=== PATIENT | female | born 1965 | race Caucasian/White ===

== ENCOUNTER → 2017-10-04 14:43 | Outpatient (CLI) | payer OTHER, MEDICAID, SELFPAY ==
[2017-10-06 13:18] LABS: Fecal Immunochemical Test NOT DETECTED
== END ==
PROVIDERS: PCP Family Medicine; Visit Provider Family Medicine
DX: Z12.11 Encounter for screening for malignant neoplasm of colon (principal)
CPT/HCPCS: 82274

== ENCOUNTER 2017-12-01 10:16 | Day surgery (SDC) | payer OTHER, MEDICAID, SELFPAY ==
[2017-11-14 15:10] VITALS: BMI 27.2
[2017-12-01] VITALS (8 sets, daily range): BP systolic 97–130; BP diastolic 59–87; PULSE 68–99; RESP 9–16; TEMP 36.6–36.9; O2SAT 95–99; BMI 27.2
--- NOTE | 2017-12-01 07:50 | P.OP_ITS ---
Operative Date/Time/Diagnoses Date of procedure: 12/01/17 Time of procedure: 17:00 Pre-op diagnosis: Right hallux abductovalgus with bunion, metatarsalgia Post-op diagnosis: same Procedure & Clinicians Procedure: Right bunionectomy with distal metatarsal osteotomy, second metatarsal osteotomy Same procedure as scheduled: Yes Indications: Painful bunion and ball of the foot Surgeon: Puja Hancock Click Yes if Unassisted: Yes Anesthesia Type: General Operative Notes Closure Type: primary Specimen(s): none sent Implants & Drains: Trilliant 3.0 and 2.0x2 screws Estimated Blood Loss (mL): 20 Blood products transfused: none Tourniquet time (min): 57 Procedure in detail: The patient was brought to the operating room and placed on the operative table in the supine position well-padded and appropriately aligned. A tourniquet was placed about the patient's right thigh. After induction of general anesthesia the foot and ankle were prepped and draped in the usual aseptic manner. After a check of anesthesia the TQ was inflated and an incision was made over the first metatarsophalangeal joint. The incision was deepened through subcutaneous tissues being careful to identify and retract all neuro and vascular structures. All bleeders were cauterized and ligated as necessary. A T -type capsulotomy was performed to the 1st metatarsophalangeal joint exposing the medial eminence . The medial eminence was resected. It should be noted that on the metatarsal head just slightly toward the plantar aspect there was a section of cartilage that had been worn down. Through the 1st interspace the lateral release was performed. The saw was then used to create a chevron type of cut medially to laterally across the 1st metatarsal head. The head was then shifted laterally re-impacted and repositioned. Temporary guidewire was placed across the metatarsal and under standard AO techniques 3 0 screw was placed. This allowed for very good compression and this was checked under fluoroscopy and noted to be appropriately aligned and hardware in place. The extra shaft overhang was reduced with a saw and areas were smoothed of the rough edges. Next attention was directed to the 2nd metatarsophalangeal joint where an incision was made dorsally. The incision was deepened through subcutaneous tissues being careful to identify and retract all vital neural and vascular structures. All bleeders were cauterized and ligated as necessary. There was some degenerative changes noted on the dorsal aspect of the metatarsal head and some synovitic tissue in this area as well. But the cortex was intact. There was some minor loss of cartilage on the most dorsal aspect of the joint surface. Send a few bit tissue was removed and a saw was used to remove create an osteotomy across the metatarsal head just starting dorsal to the joint surface. A 2nd cut was made to remove less than 1 mm bone to allow for reduction in length as well as elevating it from its plantar flexed state. Temporary fixation was used and under the aid of fluoroscopy to 2 0 screws were placed across the osteotomy. This was verified to be in good position and strength and excess overhanging dorsally distally was removed and smoothed with a rongeur. No treatment was noted from the hardware. Back to the 1st metatarsophalangeal joint, the medial capsule was redundant so a capsulorrhaphy was performed. The tourniquet was deflated and prompt hyperemic response was seen to the ft. The area was irrigated with copious amounts of normal sterile saline. Subcutaneous closure and deep closure performed using Vicryl and the skin using nylon. She was placed in a sterile lightly compressive dressing stockinette and postoperative shoe and transferred to the PACU with vital signs stable. Complications: none Condition: stable Disposition: PACU Plan for aftercare: Following a period of postoperative monitoring the patient will be discharged home on written and oral postoperative instructions including keeping the dressing dry and intact, avoiding ambulation to the foot, icing and elevating the foot when seated at home. DVT prevention techniques have been reviewed. Her 1st postoperative visit will be a dressing change and around the 3-1/2rd to 4th week will start with her 1st postoperative x-ray. There will be no weight-bearing prior to that time.
[2017-12-01] MEDS: LACTATED RINGERS 1,000 ML 42 ML IV (13:39)
--- NOTE | 2017-12-01 14:41 | PM.PREOP ---
Pre-operative Note Interval Note Pre-op Check: Yes History & Physical Reviewed by Physician Changes: No
[2017-12-01] MEDS: CEFAZOLIN VIAL 1 GM in SODIUM CHLORIDE 0.9% 100 ML 200 ML IV (14:55)
[2017-12-01] MEDS: BUPIVACAINE 0.5% (PF) VIAL 30 ML INJ (15:45)
--- NOTE | 2017-12-01 15:50 | SUR.OPER ---
Supine on padded OR bed, head on pillow, arms secured on padded arm boards at <90 degrees abduction, legs uncrossed, safety belt at waist, tape over blanket over left lower leg, right leg draped free.
--- NOTE | 2017-12-01 17:03 | SUR.PHASEI ---
SLOWLY AWAKENED, CORNELIA TO BEDSIDE SPOKE WITH PT. STABLE PACU. DRINKING WATER.
[2017-12-01] MEDS: KETOROLAC 30 MG/ML VIAL IV (17:25)
[2017-12-01] MEDS: ONDANSETRON 4 MG/2 ML INJ IV (17:34)
--- NOTE | 2017-12-01 17:36 | SUR.PHASEII ---
PT BROUGHT TO OPD, FAMILY BROUGHT IN, PT INITIALLY WANTING COFFE AND TEA, BROUGHT TO BEDSIDE INITIALLY HUNGERY , DID NOT LIKE ANY OF OUR FOOD CHOICES, STARTED DRINKING TEA AND BECAME NAUSEATED AND DRY HEAVED, ZOFRAN GIVEN, TORODOL IV GIVEN FOR H/A AND R SHOULDER PAIN. NAUSEA RESOLVED SOON AFTER MED GIVEN
--- NOTE | 2017-12-01 19:08 | SUR.PHASEII ---
late entry: pt eventually ready to go, stated head and shoulder pain tolerable no further nausea, dressing remained c/d/i. vss. left when ready and left in stable condition. pt up to br prior to d/c steady when up, voided w/o difficulty.
== END 2017-12-01 18:09 | disposition home or self-care (01) ==
PROVIDERS: PCP Family Medicine; Visit Provider Podiatrist
PROC: 0QBN0ZZ Excision of Right Metatarsal, Open Approach (ICD-10-PCS; CPT 28292; principal; 2017-12-01 13:15)
DX: M20.11 Hallux valgus (acquired), right foot (principal); M77.41 Metatarsalgia, right foot; M79.7 Fibromyalgia
CPT/HCPCS: 28308; 28296; J0690; J1100; J1170; J1885; J2405

== ENCOUNTER → 2019-11-13 16:19 | Outpatient (CLI) | payer OTHER, MEDICAID, SELFPAY ==
--- NOTE | 2019-11-13 16:22 | DI.RAD.S_ITS ---
PROCEDURE: XR HAND RT MIN 3V INDICATIONS: distorted thumb joint TECHNIQUE: 3 views of the hand(s) acquired. COMPARISON: None. FINDINGS: Bones: No fractures or dislocations. Carpal bones are normally aligned. No suspicious bony lesions. Screw for soft tissue anchor projects in the proximal phalanx of the thumb. Scattered degenerative subchondral sclerosis and spurring. Soft tissues: No suspicious soft tissue calcifications. IMPRESSION: Postsurgical changes at the proximal phalanx of the thumb. No evidence of hardware loosening Dictated by: Jack Hankins M.D. on 11/13/2019 at 17:18 Approved by: Jack Hankins M.D. on 11/13/2019 at 17:20
== END ==
PROVIDERS: PCP Student in an Organized Health Care Education/Training Program; Referring Provider Student in an Organized Health Care Education/Training Program; Visit Provider Student in an Organized Health Care Education/Training Program
DX: S69.91XA Unspecified injury of right wrist, hand and finger(s), initial encounter (principal); X58.XXXA Exposure to other specified factors, initial encounter
CPT/HCPCS: 73130

== ENCOUNTER → 2021-10-06 14:07 | Outpatient (CLI) | payer OTHER, MEDICAID, SELFPAY ==
[2021-10-07 07:58] LABS: Fecal Immunochemical Test Negative (Negative)
== END ==
PROVIDERS: PCP Student in an Organized Health Care Education/Training Program; Referring Provider Student in an Organized Health Care Education/Training Program; Visit Provider Student in an Organized Health Care Education/Training Program
DX: Z12.11 Encounter for screening for malignant neoplasm of colon (principal)
CPT/HCPCS: 82274

== ENCOUNTER 2022-09-29 09:20 | Day surgery (SDC) | payer OTHER, MEDICAID, SELFPAY ==
[2022-09-27 08:41] VITALS: BMI 28.6
[2022-09-29] VITALS (9 sets, daily range): BP systolic 122–135; BP diastolic 73–88; PULSE 77–100; RESP 15–17; TEMP 36.1–36.6; O2SAT 94–99; BMI 28.6
[2022-09-29] MEDS: LACTATED RINGERS 1,000 ML 42 ML IV (09:46)
--- NOTE | 2022-09-29 11:10 | SUR.OPER ---
Beach chair with Xiomara/Pineda shoulder positioner. Lower body on padded OR bed. Head in foam padded head cradle, secured with straps. Non-operative arm secured <90 degrees abduction. Pillow under knees. Safety belt at thigh. Cloth tape over blanket over lower legs.
--- NOTE | 2022-09-29 11:15 | P.HP_ITS ---
History of Present Illness History of Present Illness Date Patient Seen: 09/29/22 Time Patient Seen: 10:50 Chief complaint: Left Shoulder Narrative: 57-year-old female with longstanding left shoulder pain that has been unresponsive to conservative treatment. 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) Family history of skin cancer Fibromyalgia (~2010) Fingernail abnormalities Generalized headaches (Unknown) Genital warts (~1989) Hallux valgus (acquired), right foot Herpes (~1999) Injury of right thumb Lumbar disc disease (~2004) Macrocytosis without anemia (05/10/16) Metatarsalgia, right foot Moderate mixed hyperlipidemia not requiring statin therapy Mumps (~1969) Osteoarthritis Pain in right foot Painful menstrual periods (~2009) Scoliosis (~1979) Shoulder impingement Solar lentigo Tobacco abuse Surgical History History of arthroscopy of right shoulder History of bunionectomy of right great toe (12/01/17) Hx of hand surgery (11/2014) Hx of knee surgery (~1986) Family History Grandmother Cancer Grandmother Cancer Grandfather Cancer Social History household members: family and other pets and animals: No education level: college occupational status: previously employed and disabled jonelle/islam: Other travel history: other seatbelt use: always water heater temp set < 120 deg: Yes working smoke detector in home: Yes carbon monox detector in home: No firearms in home: Yes (not mine. step father retired [employer] Smoking Status: Former smoker quit status: considering quitting alcohol intake: former substance use type: marijuana during the past year weight has: decreased > 10 lbs well-balanced diet: daily or most days daily servings fruits/veg: other caffeine: Yes eating out: other Type(s) of exercise: walking, regular exercise, other and yoga frequency: daily duration: 45-60 minutes/day Meds Home Medications and Allergies Home Medications Medication Instructions Recorded Confirmed Type [TUMERIC] ##0 03/09/17 08/18/22 History omega 6-tzh-apx-fish oil 1,000 mg 1,200 mg PO DAILY ##0 03/09/17 09/29/22 Histor y (120 mg-180 mg) capsule (Fish Oil) acyclovir 400 mg tablet 400 mg PO BID PRN genital herpes 04/27/22 09/29/22 Rx simplex #20 tabs diclofenac sodium 100 mg 100 mg PO DAILY #90 tabs 07/13/22 09/29/22 Rx tablet,extended release 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 Thyroid 15 mg tablet (thyroid 15 mg PO DAILY #90 tabs 07/21/22 09/29/22 Rx (pork)) hydrocodone 5 mg-acetaminophen 325 1 tab PO BID PRN pain #60 tabs 08/30/22 09/29/22 Rx mg tablet methylphenidate HCl 40 mg biphasic 40 mg PO DAILY #30 caps 09/09/22 Rx 50-50 capsule,extended release Allergies Allergy/AdvReac Type Severity Reaction Status Date / Time No Known Drug Allergies Allergy Verified 08/18/22 14:08 Exam Vital Signs (past 8 hours): - 09/29/22 09:38 Temperature 98 F Pulse Rate 77 Respiratory Rate 16 Blood Pressure 135/77 Pulse Oximetry 99 Oxygen Delivery Method Room Air Oxygen Delivery Method Room Air Narrative Exam Narrative: On physical exam, no swelling or deformity to the shoulder. Patient has difficulty with active range of motion pain and discomfort going beyond 90? of forward flexion and abduction. Passively can be fully range with no sign of any stiffness or contractures. Pain with provocative maneuvers for impingement positive Neer positive [place]. Positive Jose empty can test. Negative speed's negative [place]'s negative Yergason's. No sign of any glenohumeral joint instability. Pain with supraspinatus strength testing but no significant weakness. Assessment & Plan Assessment & Plan narrative: Patient with left shoulder impingement with MRI findings of mild tearing to the rotator cuff. I went over treatment options with the patient today both operative versus non operative. Patient is interested in proceeding with a left shoulder arthroscopic decompression and subacromial decompression and debridement. Discussed the possibility of a distal clavicle excision as well. All of her questions and concerns were answered to her full satisfaction and consent form was freely obtained. The risk, benefits, alternatives, possible complications, operative course, and postop outcomes were discussed. Complications including but not limiting to bleeding, infection, fracture, nerve injury, continued pain postoperatively or instability postoperatively were discussed in detail. Medical complications including but not limited to deep venous thrombosis event, anesthesia complications with excessive bleeding, vascular events or cardiac events and other possible complications were discussed in detail. Need for postoperative rehabilitation and anticipated hospital stay and clinical course were discussed in detail. Patient acknowledges understanding and elects to proceed with surgery.
--- NOTE | 2022-09-29 11:17 | PM.PREOP ---
Pre-operative Note Interval Note History & Physical reviewed/Exam performed by Physician: Yes Changes to H&P: No
--- NOTE | 2022-09-29 11:18 | SUR.PREOP ---
Block start time [1100] . Monitoring initiated and maintained throughout procedure. Oxygen and medications given per anesthesiologist instructions. Patient remained stable throughout procedure, no adverse reactions noted. Block end time [1115].
--- NOTE | 2022-09-29 11:23 | PM.PNB.1 ---
Peripheral Nerve Block Note Pre-Procedure Reason for block: Attending surgeon request/order for post-op pain management Consent obtained from: Patient Procedure Date of procedure: 09/29/22 Start Time: 11:05 End Time: 11:15 Performed by: Devon Chandler Sedation - enter dose in comment field: IV Midazolam (mg) (2) and IV Fentanyl (mcg) (50) Location: Pre-Op Laterality: Left Sterile Technique: Chloraprep Skin Wheal: Lidocaine 1% mL: 1 Gauge: 27 Equipment Single injection - Needle brand, gauge, length: 22g Medications Medications - enter concentration (%) & mL in comment field: Bupivacaine (0.5% 20 ml) Test Dose: Negative Incremental aspiration prior to injection: Yes Ultrasound Reason for Ultrasound: U/S guidance used for needle placement and U/S used to visualize spread of anesthetic Image printed/saved/archived: No Vital signs VS: - 09/29/22 09:38 Temperature 98 F Pulse Rate 77 Respiratory Rate 16 Blood Pressure 135/77 Pulse Oximetry 99 Oxygen Delivery Method Room Air Oxygen Delivery Method Room Air
[2022-09-29] MEDS: CEFAZOLIN 2 GM/100 ML PREMIX 100 ML IV (11:30)
[2022-09-29] MEDS: BUPIVACAINE 0.5% (PF) 10 ML VIAL 30 ML INJ (12:11)
--- NOTE | 2022-09-29 12:37 | P.OP_ITS ---
Operative Date/Time/Diagnoses Date of procedure: 09/29/22 Time of procedure: 11:30 Pre-op diagnosis: Left shoulder impingement with partial rotator cuff tear and AC joint arthritis Post-op diagnosis: same Procedure & Clinicians Procedure: Left shoulder extensive debridement with subacromial decompression and distal clavicle excision Same procedure as scheduled: Yes Indications: Left shoulder impingement Surgeon: Juan Daniel Jordan Screening Representative: Chrissy Hargrove Anesthesia Type: General and Peripheral nerve block Operative Notes Findings: Extensive partial tearing to the bursal aspect of the rotator cuff involving the supraspinatus and infraspinatus. Also signs of articular partial tearing. No sign of any high-grade partial tears or full-thickness tears. Arthritic changes to the glenohumeral joint but no sign of any full-thickness cartilage loss. Degenerative changes throughout the labrum as well as a type 1 slap tear. Patient had extensive tearing of biceps tendon with signs of rupture. Significant arthritic changes to the AC joint with inferior osteophytes. Impingement lesion in the acromial arch. Closure Type: primary Estimated Blood Loss (mL): 5 Procedure in detail: On date of service, Patient was met in the holding area. The operative site was signed and witnessed by the OR staff. The surgeries once again discussed with the patient and any remaining questions they had were answered fully. Patient was taken back to the operating theater and placed on the operating table in a supine position. Great care was taken to ensure that all bony prominences were properly padded. Patient was then placed into the beach chair position. The head and neck were properly positioned and secured. A timeout was performed verifying patient's name, procedure, and the operative site. The upper extremity was then prepped and draped in the normal sterile fashion. Previously, the bony anatomy and portal sites were marked out as well as injected with Marcaine with epinephrine. An 11 blade was used to make an incision in the posterior aspect of the shoulder. The camera was placed, and a diagnostic shoulder scope was performed. Findings listed above. Next under direct visualization, a anterior portal was made. Shaver was placed into the anterior portal and a extensive debridement of the glenohumeral joint was performed. Shaver was used to debride the degenerative changes throughout the labrum as well as a type 1 slap tear. Also used to debride the partial tearing to the articular surface of the rotator cuff. We debrided down to more healthy rotator cuff tissue. The remaining biceps stump was debrided down to healthy superior labral tissue. Next the camera was placed into the subacromial space. A lateral portal was obtained under direct visualization. A combination of the shaver and vapor wand, a debridement of the inflamed tissue as well as inflamed bursa was performed. The lateral gutter was also cleaned out. This gave us good visualization of the bursal aspect of the rotator cuff as well as the acromial arch. There was an obvious impingement lesion in the acromial arch. Next we turned our attention to the subacromial decompression. Next, a oliva was then used to do a subacromial decompression. This allowed us to convert the acromion to a type I acromial. This also allowed us to shave down the bony lesion in the acromial space. The rasp was placed into the lateral portal as well as the anterior portal in order to do a complete subacromial decompression. We next turned our attention to the distal clavicle. Using the shaver and the vapor wand we were able to clean out all the soft tissue around the distal clavicle as well as into the a.c. joint. This gave us good visualization of the arthritic changes to the distal clavicle as well as good visualization of the inferior osteophytes coming off the distal clavicle. Using the oliva in the anter ior portal, we were able to remove the inferior osteophytes as well as do a distal clavicle excision removing 3-4 mm of bone. The camera was then placed into the anterior portal which gave us a direct visualization of the a.c. joint allowing us to assess the distal clavicle excision. We then turned our attention to the rotator cuff tear. Shaver was used to debride once again the partial tearing that was involving an extensive portion of the supraspinatus and infraspinatus.. Also used to remove any remaining synovitis and inflamed bursal tissue. The shoulder was then taken through range of motion and there was no sign of any additional impingement. Next, the suprascapular nerve was blocked. Patient's shoulder was then cleaned dried and dressed and patient was taken to the PACU in stable condition. Complications: none Post-operative Condition: stable Disposition: PACU Plan for aftercare: Sling just for comfort. No restrictions on range of motion. We will limit lifting for the next 4-6 weeks.
[2022-09-29] MEDS: ONDANSETRON 4 MG/2 ML INJ IV (13:07)
[2022-09-29] MEDS: METOCLOPRAMIDE 10 MG/2 ML INJ IV (13:27)
== END 2022-09-29 14:10 | disposition home or self-care (01) ==
PROVIDERS: PCP Student in an Organized Health Care Education/Training Program; Referring Provider Orthopaedic Surgery; Visit Provider Orthopaedic Surgery
PROC: 0RQK4ZZ Repair Left Shoulder Joint, Percutaneous Endoscopic Approach (ICD-10-PCS; CPT 29807; principal; 2022-09-29 10:45)
DX: M75.112 Incomplete rotator cuff tear or rupture of left shoulder, not specified as traumatic (principal); M19.012 Primary osteoarthritis, left shoulder; M75.42 Impingement syndrome of left shoulder; G89.18 Other acute postprocedural pain; S43.432A Superior glenoid labrum lesion of left shoulder, initial encounter
CPT/HCPCS: 29824; 29826; 29823; 64450; J0690; J1100; J2250; J2405; J2704; J2765; J3010

== ENCOUNTER → 2023-03-16 14:32 | Outpatient (CLI) | payer OTHER, MEDICAID, SELFPAY ==
[2023-03-16 15:10] LABS: Add Manual Diff / Slide Review NO; Basophils Absolute Auto 100 /uL (0-100); Basophils Percent Auto 1.4 % (0-2); Eosinophils Absolute Auto 100 /uL (0-450); Eosinophils Percent Auto 2.5 % (2-4); Hematocrit 36.5 % (36-46); Hemoglobin 12.5 g/dL (12.0-16.0); Lymphocytes Absolute Auto 1800 /uL (1100-4500); Mean Corpuscular HGB Conc 34.2 % (30-36); Mean Corpuscular Hemoglobin 32.8 PG (26-34); Mean Corpuscular Volume 95.8 fL (80-100); Monocytes Absolute Auto 300 /uL (0-900); Neutrophils Absolute Auto 1700 /uL (1500-7000); Neutrophils Percent Auto 43.1 % (50-75); Platelet Count 411 X10^3/uL (150-400); Red Blood Cell Count 3.81 X10^6/uL (4.0-5.2); White Blood Cell Count 3.9 X10^3/uL (4.5-11.0)
[2023-03-16 15:43] LABS: Alanine Aminotransferase 27 IU/L (<35); Albumin 4.3 g/dL (3.5-5.0); Albumin Globulin Ratio 1.4 (1.0-2.8); Alkaline Phosphatase 75 U/L (38-126); Aspartate Aminotransferase 30 IU/L (14-36); BUN Creatinine Ratio 8.3 (6-22); Bilirubin Total 0.4 mg/dL (0.2-1.3); Blood Urea Nitrogen 5 mg/dL (7-17); Calcium 9.6 mg/dL (8.4-10.2); Carbon Dioxide 28 mmol/L (22-32); Chloride 99 mmol/L (98-107); Cholesterol 230 mg/dL (140-199); Estimated Glomerular Filt Rate > 60 mL/min (>60); Glucose 91 mg/dL (70-100); HDL Cholesterol 87 mg/dL (40-60); HEMOLYSIS < 15 (0-50); LDL Cholesterol Calculated 130 mg/dL (<100); Sodium 134 mmol/L (137-145); Total Protein 7.3 g/dL (6.3-8.2); Triglycerides 65 mg/dL (35-150)
[2023-03-16 16:46] LABS: HIV 1 & 2 Ab/Ag 4th Gen Combo NEGATIVE (NEGATIVE); Hep C Virus Ab w/Reflex Quant NEGATIVE s/c (NEGATIVE)
== END ==
PROVIDERS: PCP Family Medicine; Referring Provider Family Medicine; Visit Provider Family Medicine
DX: F90.9 Attention-deficit hyperactivity disorder, unspecified type (principal); F11.20 Opioid dependence, uncomplicated; M79.7 Fibromyalgia
CPT/HCPCS: 36415; 80053; 80061; 85025; 86803; 87389

== ENCOUNTER 2023-05-12 06:34 | Day surgery (SDC) | payer OTHER, MEDICAID, SELFPAY ==
[2023-05-09 12:03] VITALS: BMI 25.3
[2023-05-12] VITALS (7 sets, daily range): BP systolic 101–123; BP diastolic 70–78; PULSE 77–100; RESP 12–21; TEMP 36.2–37.7; O2SAT 97–100; BMI 24.3
--- NOTE | 2023-05-12 | DI.RAD.S_ITS ---
PROCEDURE: XR FOOT LT 2V INDICATIONS: SURGERY TECHNIQUE: 3 views of the foot were acquired. COMPARISON: None. FINDINGS: 2 intraoperative fluoroscopy images demonstrate insertion of a surgical pin through the 2nd toe traversing the 2nd proximal, middle and proximal phalanges. There is a surgical screw in the 2nd metatarsal neck. Postsurgical changes are is also seen at the 1st tarsometatarsal joint and the the base of the 1st toe. IMPRESSION: Surgical pin traversing the 2nd proximal, middle and the distal phalanges. Dictated by: Adelso Garrett M.D. on 05/12/2023 at 12:59 Approved by: Adelso Garrett M.D. on 05/12/2023 at 13:01
[2023-05-12] MEDS: ACETAMINOPHEN 325 MG TABLET 975 MG PO (06:55)
[2023-05-12] MEDS: LACTATED RINGERS 1,000 ML 42 ML IV (06:55)
[2023-05-12] MEDS: SCOPOLAMINE 1 PATCH TOP (07:43)
--- NOTE | 2023-05-12 07:45 | PM.PREOP ---
Pre-operative Note Interval Note History & Physical reviewed/Exam performed by Physician: Yes Changes to H&P: No
--- NOTE | 2023-05-12 07:54 | PM.OP.1 ---
Operative Date/Time/Diagnoses Date of procedure: 05/12/23 Time of procedure: 07:54 Pre-op diagnosis: Left hallux valgus with bunion, second hammertoe pain Post-op diagnosis: same Procedure & Clinicians Procedure: 1. Left first metatarsocuneiform arthrodesis with bunionectomy 2. Left hallux phalangeal osteotomy 3. Left second metatarsal osteotomy 4. Left second proximal and distal interphalangeal arthrodesis Same procedure as scheduled: Yes Indications: 57-year-old female with painful bunion and hammertoe to the left foot. Conservative measures failed to alleviate her pain and she wished to have surgical intervention at this time. We spoke with the risks and potential complications as well as expected outcomes. Consent was signed and there were no contraindications to the procedures at this time. Surgeon: Puja Hancock Click Yes if Unassisted: Yes Anesthesia Type: General Operative Notes Closure Type: primary Specimen(s): none sent Prosthetic devices, grafts, tissues, transplants, or devices: [place] plate, 4.0 screw, 2.7 screws (4), 2.0 screw, JAWS staple Estimated Blood Loss (mL): 50 Blood products transfused: none Procedure in detail: The patient was brought to the operating room and placed on the operating table in the supine position. Tourniquet was placed about the left thigh. Well padded, appropriately aligned. After induction of general anesthesia the foot and ankle were prepped and draped in the usual aseptic manner. The tourniquet was inflated. Incision was made over the left 1st metatarsal cuneiform joint extending to the 1st metatarsophalangeal joint. The incision was deepened through subcutaneous tissues being careful to identify and retract all vital neurovascular structures. All bleeders were cauterized and ligated as necessary. A capsulotomy was performed to the 1st MTPJ exposing the enlarged medial eminence adn a little cartilage loss medially. The saw was used to resect the medial eminence. A rasp was used to reduce the sharp edges of the bone. Attention was then directed to the 1st metatarsocuneiform joint which was entered. The joint was taken down and a saw was used to resect the base of the 1st metatarsal and the distal leading edge of the medial cuneiform. This was done at a slight angle on the medial cuneiform to allow for closure of the intermetatarsal angle. It was found that the edge of the 1st metatarsal base laterally was too prominent to allow for full closure so the proximal lateral edge of the 1st metatarsal was also resected. The area was then able to be closed and the alignment was good. A k-wire was used to fenestrate either side of the former metatarsocuneiform joint and fish scaling was also used. The area was irrigated with copious amounts normal sterile saline. With the aid of C-arm the guidewire was placed for temporary fixation through the 1st metatarsocuneiform joint. I was able to translate the 1st metatarsal slightly medially to allow for better correction. It was noted to make sure that there was not a significant amount of plantar flexion distally. Next the plate was trialed and using the guide the lag screw was placed from distal lateral to proximal medial. The fusion site showed good compression and closure. There was still a little spot left that I was able to fill with some portion of harvested bone from the prior resection. The plate was then attached with the corresponding screws in the normal AO technique. This was reviewed on C-arm and noted to be strong and in appropriate alignment. Once this was loaded it would appear that there was still some drift of the hallux even after the extensor hallucis lengthenging, so a phalangeal osteotomy was decided upon. Dissection was carried down and reflecting the extensor away from the proximal phalanx centrally, a saw was used to remove a triangular portion of bone with the apex medially. This was gently closed down to allow for straightening and justification of the great toe. The area was irrigated with copious amounts normal sterile saline. Using standard technique a bone staple was used, this was placed dorsal medially and under good tension. This closed down the osteotomy with good strength and coaptation. The great toe was put through range of motion and no crepitus was noted. Upon loading the foot alignment was good of the great toe. Next attention was directed to the 2nd metatarsal head where an incision was made over the dorsal 2nd metatarsophalangeal joint. The incision was deepened through subcutaneous tissues being careful to identify and retract all vital neural and vascular structures. All bleeders were cauterized and ligated as necessary. Once the capsule was entered the metatarsal head and neck were exposed and using the aid of C-arm, a saw was used to make an osteotomy in the dorsal head of the metatarsal and pushed back proximally to a point where there was more of an equal parabola of length. This was temporarily fixated with a guidewire and then using standard AO technique, a 2.0 screw was placed across this. Guidewire was removed this was checked under C-arm and strength was good as well as compression. Excess bone/cartilage was removed from distal tip of head. Incision was made over the second toe distal and proximal interphalangeal joints dorsally. The incision was deepened through subcutaneous tissues being careful to identify and retract all vital neural and vascular structures. All bleeders were cauterized and ligated as necessary. A transection of the extensor tendon at the proximal and distal interphalangeal joints was performed. A saw was used to resect the base of the distal and intermediate phalanges and the head of the intermediate and proximal phalanges. A curette was used to further remove any of the lingering cartilaginous tissue from either surface and the areas were irrigated with copious amounts of normal sterile saline. Under the aid of C-arm, the k-wire was placed in the base of the intermediate phalanx and out the distal tip of the toe. This was retrograded back across the proximal phalanx. This closed down the joints with good apposition, and k-wire was checked for placement under mini C-arm in all three planes. Excess distal wire was removed after careful bending as it exited the toe, and pin cap was placed. Tourniquet was deflated, a prompt hyperemic response was seen to the foot. The areas were all irrigated again with copious amounts of normal sterile saline. The extensor tendon was repaired using 3-0 and 4-0 Vicryl in both locations and subcutaneous closure using Vicryl as well. Nylon was used to close the skin. The tip of toe where the wire was exiting was dressed with triple antibiotic ointment. A lightly compressive dressing was placed on the foot and she was placed in stockinette and postsurgical boot and transferred to the PACU with vital signs stable. Complications: none Post-operative Condition: stable Disposition: PACU Plan for aftercare: Following a period of postoperative monitoring, the patient will be discharged to home on written and oral postoperative instructions including keeping the dressing dry and intact, no weight to the surgical foot, icing and elevating the foot when seated at home. DVT prevention techniques have been reviewed. For the 1st postoperative visit the dressing will be changed and close to the 4th postoperative week we will likely have first weightbearing x-rays.
[2023-05-12] MEDS: CEFAZOLIN 2 GM/100 ML PREMIX 100 ML IV (08:08)
--- NOTE | 2023-05-12 08:41 | SUR.OPER ---
Supine on padded OR bed, head on pillow, arms secured on padded arm boards at <90 degrees abduction, legs uncrossed, safety belt at waist, tape over blanket over lower right leg, left leg draped free with gel bump under left hip..
[2023-05-12] MEDS: BUPIVACAINE 0.5% (PF) 30 ML VIAL INJ (08:48)
[2023-05-12] MEDS: OXYCODONE IR 5 MG TABLET PO (12:17)
== END 2023-05-12 12:50 | disposition home or self-care (01) ==
PROVIDERS: PCP Family Medicine; Referring Provider Podiatrist; Visit Provider Podiatrist
PROC: 0QBP0ZZ Excision of Left Metatarsal, Open Approach (ICD-10-PCS; CPT 28292; principal; 2023-05-12 07:45)
DX: M20.12 Hallux valgus (acquired), left foot (principal); M20.42 Other hammer toe(s) (acquired), left foot; M79.672 Pain in left foot
CPT/HCPCS: 28308; 28297; 28285; 73620; 76000; C1776; J0690; J1100; J1885; J2250; J2405; J2704; J3010

== ENCOUNTER → 2024-01-18 14:02 | Outpatient (CLI) | payer OTHER, MEDICAID, SELFPAY ==
--- NOTE | 2024-01-18 14:04 | EKG_ITS ---
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
[2024-01-18 14:54] LABS: Add Manual Diff / Slide Review NO; Basophils Absolute Auto 100 /uL (0-100); Basophils Percent Auto 1.8 % (0-2); Eosinophils Absolute Auto 100 /uL (0-450); Eosinophils Percent Auto 2.7 % (2-4); Hematocrit 36.2 % (36-46); Hemoglobin 12.5 g/dL (12.0-16.0); Lymphocytes Absolute Auto 1700 /uL (1100-4500); Lymphocytes Percent Auto 43.4 % (25-40); Mean Corpuscular HGB Conc 34.6 % (30-36); Mean Corpuscular Hemoglobin 34.2 PG (26-34); Mean Corpuscular Volume 98.8 fL (80-100); Monocytes Absolute Auto 300 /uL (0-900); Monocytes Percent Auto 8.2 % (3-14); Neutrophils Absolute Auto 1800 /uL (1500-7000); Neutrophils Percent Auto 43.9 % (50-75); Platelet Count 438 X10^3/uL (150-400); Red Blood Cell Count 3.67 X10^6/uL (4.0-5.2); Red Cell Distribution Width 13.1 % (11.6-14.8)
[2024-01-18 15:09] LABS: Albumin 4.4 g/dL (3.5-5.0); BUN Creatinine Ratio 10.8 (6-22); Blood Urea Nitrogen 7 mg/dL (7-17); Calcium 10.1 mg/dL (8.4-10.2); Carbon Dioxide 27 mmol/L (22-32); Chloride 102 mmol/L (98-107); Estimated Glomerular Filt Rate > 60 mL/min (>60); Glucose 94 mg/dL (70-100); HEMOLYSIS < 15 (0-50); Sodium 135 mmol/L (137-145)
[2024-01-18 15:13] LABS: Hemoglobin A1C% w Est Avg Glu 5.2 % (4.0-6.0)
[2024-01-18 15:14] LABS: Potassium 5.4 mmol/L (3.4-5.1)
[2024-01-18 15:19] LABS: Prealbumin 31.2 mg/dL (17.6-36.0)
[2024-01-18 15:26] LABS: Vitamin D 25 Hydroxy (D3) 72.6 ng/mL (30.0-100.0)
== END ==
LOC: LAB 14:03
PROVIDERS: PCP Family Medicine; Referring Provider Orthopaedic Surgery Adult Reconstructive Orthopaedic Surgery; Visit Provider Orthopaedic Surgery Adult Reconstructive Orthopaedic Surgery
DX: Z01.818 Encounter for other preprocedural examination (principal); Z01.812 Encounter for preprocedural laboratory examination; E55.9 Vitamin D deficiency, unspecified; R77.0 Abnormality of albumin; R73.9 Hyperglycemia, unspecified
CPT/HCPCS: 36415; 80048; 82040; 82306; 83036; 84134; 85025; 93005; 93010

== ENCOUNTER → 2024-04-24 11:17 | Outpatient (CLI) | payer OTHER, MEDICAID, SELFPAY ==
--- NOTE | 2024-04-24 11:18 | DI.RAD.S_ITS ---
PROCEDURE: XR LUMBAR SPINE 2-3V INDICATIONS: radiculopathy TECHNIQUE: Three views of the lumbar spine were acquired. COMPARISON: None. FINDINGS: Bones: Five [id number] vertebrae are present. Severe L5-S1 disc height loss. Moderate disc space loss throughout the rest of the lumbar spine. Moderate multilevel facet arthropathy from L3 through S1. No vertebral body compression fractures. No suspicious bony lesions. Soft tissues: Overlying bowel gas pattern is normal. No suspicious soft tissue calcifications. IMPRESSION: Severe L5-S1 disc height loss and moderate disc height loss elsewhere. Moderate facet arthropathy without subluxation. Dictated by: Jojo Ramires M.D. on 04/25/2024 at 9:29 Approved by: Jojo Ramires M.D. on 04/25/2024 at 9:31
== END ==
PROVIDERS: PCP Family Medicine; Referring Provider Family Medicine; Visit Provider Family Medicine
DX: M54.41 Lumbago with sciatica, right side (principal); M47.816 Spondylosis without myelopathy or radiculopathy, lumbar region; M47.817 Spondylosis without myelopathy or radiculopathy, lumbosacral region
CPT/HCPCS: 72100

== ENCOUNTER → 2024-05-13 13:33 | Outpatient (CLI) | payer OTHER, SELFPAY ==
--- NOTE | 2024-05-13 13:35 | DI.MRI.S_ITS ---
PROCEDURE: MR LUMBAR SPINE WO CON INDICATIONS: Sciatica, right thigh neuropathy x3 months TECHNIQUE: Noncontrast sagittal T1 spin echo and T2 fast echo, sagittal STIR, and T2 fast spin echo through the lumbar spine. In cases with scoliosis, additional coronal T2 fast spin echo may be performed. COMPARISON: [facility], CR, XR LUMBAR SPINE 2-3V, 04/24/2024, 11:25. FINDINGS: Image quality: This examination is limited by involuntary motion artifact. Alignment and Curvature: There is normal bony alignment. Bone Marrow: Marrow is of normal overall signal. No acute vertebral body compression fractures. Remote anterior wedge deformity can be seen T11, with 20-30% loss of height anteriorly. Spinal Cord: Conus medullaris terminates at the L1 level. Visualized cord demonstrates normal signal and size. Paraspinous Soft Tissues: No paravertebral masses. T11-T12: At least moderate loss of disc height and disc signal can be seen. Reactive marrow endplate changes are seen, which demonstrate mixed T1 weighted and T2-weighted signal, and are attributed to a combination of edema and fatty metaplasia (Modic type I and Modic type II changes). Fusion of anterior osteophytes can be seen. At least moderate disc bulge is seen. There is a central disc protrusion. There is [id number] right-sided and mild left-sided neural foraminal narrowing. Moderate central canal narrowing is seen. T12-L1: Normal appearance. L1-L2: Normal appearance. L2-L3: The disc height and disk signal are relatively well-preserved. Mild generalized disc bulge is seen. There is a central disc protrusion. Mild to moderate facet hypertrophy is seen. There is at least moderate left-sided and no significant right-sided neural foraminal narrowing. L3-L4: Moderate central canal narrowing is seen. Mild loss of disc height is seen. Loss of disc signal is seen. Moderate disc bulge is seen, which is eccentric to the left. There is a superimposed central disc protrusion. Moderate facet joint hypertrophy is seen. Associated hypertrophy of the ligamentum flavum can be seen. There is at least moderate bilateral neural foraminal narrowing seen, right worse than left. There is a degree of compression seen upon the exiting right L3 nerve root. At least moderate central canal narrowing is seen. L4-L5: At least moderate loss of disc height and disc signal can be seen. Moderate disc bulge is seen, with a central disc extrusion. Moderate facet joint hypertrophy is seen. Associated hypertrophy of the ligamentum flavum can be seen. There is moderate left-sided neural foraminal narrowing. Moderate to severe right-sided neural foraminal narrowing is seen, as on series 3, image 6. Moderate to severe central canal narrowing is seen, as on series 5, image 18. Note is made of a mild degree of fluid between the spinous processes, as on series 2, image 9, this may reflect early Baastrup disease. L5-S1: Moderate to severe loss of disc height and disc signal can be seen. Reactive marrow endplate changes are seen, which are hyperintense on T1-weighted and T2-weighted imaging and most consistent with fatty metaplasia (Modic type II changes). Moderate generalized disc bulge is seen. There is a central disc osteophyte protrusion. Mild to moderate facet hypertrophy is seen. There is at least moderate bilateral neural foraminal narrowing, left worse than right. There is a degree of compression seen upon the exiting left L5 nerve root. Mild to moderate central canal narrowing is seen. IMPRESSION: Multiple levels of lumbar spine degenerative change can be seen, which are overall worst at the L4-L5 level. Dictated by: Zbigniew Rader M.D. on 05/21/2024 at 17:05 Approved by: Zbigniew Rader M.D. on 05/21/2024 at 17:11
== END ==
PROVIDERS: PCP Family Medicine; Referring Provider Family Medicine; Visit Provider Family Medicine
DX: M54.41 Lumbago with sciatica, right side (principal); M47.816 Spondylosis without myelopathy or radiculopathy, lumbar region; M47.817 Spondylosis without myelopathy or radiculopathy, lumbosacral region; M51.9 Unspecified thoracic, thoracolumbar and lumbosacral intervertebral disc disorder; M79.651 Pain in right thigh
CPT/HCPCS: 72148

== ENCOUNTER 2024-06-03 09:28 | Day surgery (SDC) | payer OTHER, SELFPAY ==
[2024-05-27 09:23] VITALS: BMI 24.2
[2024-06-03] VITALS (7 sets, daily range): BP systolic 109–128; BP diastolic 58–87; PULSE 71–90; RESP 12–16; TEMP 36.1–36.6; O2SAT 94–100; BMI 24.2
--- NOTE | 2024-06-03 06:00 | DI.RAD.S_ITS ---
PROCEDURE: XR KNEE LT 1TO2V INDICATIONS: tka TECHNIQUE: 2 view(s) of the knee acquired. COMPARISON: None. FINDINGS: Bones: Patient is status post knee joint arthroplasty. Hardware components are in expected positions. Visualized bony structures are intact. Soft tissues: Overlying postoperative changes are noted. IMPRESSION: Expected post-operative appearance of a knee arthroplasty. Dictated by: Froy Boykin M.D. on 06/03/2024 at 16:51 Approved by: Froy Boykin M.D. on 06/03/2024 at 16:51
[2024-06-03] MEDS: ACETAMINOPHEN 325 MG TABLET 975 MG PO (10:18)
[2024-06-03] MEDS: MELOXICAM 7.5 MG TABLET 15 MG PO (10:19)
[2024-06-03] MEDS: LACTATED RINGERS 1,000 ML 42 ML IV ×2 (10:21→11:44)
--- NOTE | 2024-06-03 10:28 | PM.PREOP ---
Pre-operative Note Interval Note History & Physical reviewed/Exam performed by Physician: Yes Changes to H&P: No
[2024-06-03] MEDS: CEFAZOLIN 2 GM/100 ML PREMIX 100 ML IV (11:10)
[2024-06-03] MEDS: TRANEXAMIC ACID 1,000 MG VIAL 2000 MG INJ ×2 (11:14→12:29)
--- NOTE | 2024-06-03 11:32 | SUR.OPER ---
Supine on padded OR bed. Pillow under head, arms secured on padded armboards <90 degree abduction. Safety belt across torso. Non-operative leg secured with tape over blanket over lower leg. Operative leg secured in [employer] positioner. Foam padded brace at thigh of operative leg.
[2024-06-03] MEDS: ROPIVACAINE/EPI/CLONIDINE/KET 50 ML SYRINGE INJ (11:41)
--- NOTE | 2024-06-03 12:57 | P.OP_ITS ---
Operative Date/Time/Diagnoses Date of procedure: 06/03/24 Pre-op diagnosis: Left knee osteoarthritis Post-op diagnosis: same Procedure & Clinicians Procedure: Left total knee arthroplasty Same procedure as scheduled: Yes Surgeon: Farhan Mcclellan Family Medicine Chair: Aissatou Washington Anesthesia Type: Spinal, Sedation, Peripheral nerve block and Local Operative Notes Estimated Blood Loss (mL): 150 Procedure in detail: Left Gap-Balanced Chris Persona Medial-Congruent Primary Total Knee Arthroplasty Implants: * Size 4 Cruciate Retaining Femoral Component * Size D Tibial Component with 14 x 30 stem extension * Size 10 Medial Congruent Polyethylene Insert * Unresurfaced Patella Procedure Summary: This 58-year-old female patient had a history of prior open ACL reconstruction remotely. She had medial and lateral incisions which had been healed for decades after that prior surgery. She had symptoms consistent with a neuroma in the area of the medially based scar. I used the more medial of the 2 incisions, excised the old scar intending to excise the superficial neuroma along with it, and used a incisional wound VAC at the conclusion of the procedure given the old scar. She had valgus arthritis and mechanical axis resections were used. She did not require a posterolateral release. Her bone quality in the tibia was very poor. This did not appear to be due to the old tunnel as that was centrally located, but the worst bone quality was located in the lateral proximal tibia. Because of this poor bone quality a stem extension was used to attempt to provide additional stability to the construct. Procedure in Detail: This patient was seen preoperatively and evaluated for knee pain which was refractory to numerous nonoperative treatment modalities. Their pain correlated with radiographic changes demonstrating significant degeneration in the knee joint. The risks and benefits of continued nonoperative management versus operative management were discussed at length and all of the patient?s questions were answered. Additional educational materials providing further details beyond our discussion in clinic were provided via a publicly available patient education video which included the incidence of medical complications associated with total knee arthroplasty, reasons for revision following total knee arthroplasty, and patient satisfaction rates following total knee arthroplasty. That video can be accessed at [email or web address] . With this understanding of the risks inherent to the procedure, the patient elected to move forward with operative management. Following preoperative optimization, the patient was scheduled for surgery. The patient was met in the preoperative holding area the day of the procedure and all questions were answered. The patient?s nares were swabbed with betadine in order to decolonize them from MRSA. Informed consent was signed and the left limb was marked with indelible ink.? The patient was brought back to the operating room where anesthesia was induced. The patient was transferred to the operating table and all bony prominences were padded. The operative site was prepped and draped in the usual sterile fashion. A second prep stick was utilized following drape placement. The incision was marked corresponding to the medial aspect of the tibial tubercle and the patella. Ioban was wrapped circumferentially around the knee. Prior to incision, tranexamic acid and cefazolin were administered. Templating images were displayed. A timeout procedure was performed verifying the patient?s identity, medical comorbidities, allergies, relevant medications, anesthesia type and the surgical plan. All present were in agreement. The assistance of a physician assistant infant teacher was required for positioning, room setup, soft tissue retraction and wound closure. Without this assistance, the procedure would have been significantly more challenging and time consuming.?? The tourniquet was inflated prior to incision. I made an anterior incision over the knee, dissected through the subcutaneous tissues and identified the lateral border of the VMO. Medial and lateral soft tissue flaps were developed. A medial parapatellar arthrotomy was performed ensuring that adequate capsular tissue would remain for closure at the conclusion of the procedure. The hip was brought into extension and the medial soft tissues were released off the joint line of the tibia. Tissue overlying the distal anterior femur was released to allow for later assessment for anterior notching but left in place. A portion of the retropatellar fat pad was excised while protecting the patellar tendon. The patella was everted. The patella was not resurfaced. Osteophytes were excised and a lateral facetectomy was performed. The patella was released from its everted position.?? I flexed the knee to 90 degrees and placed retractors to allow access to the notch. An opening reamer was used to gain access to the femoral canal and an intramedullary sharon was introduced into the canal. Diaphyseal fit was obtained in order to allow a distal femoral resection at 5 degrees relative to the anatomic axis, thereby aiming to achieve mechanical alignment of the eventual implant. A +1 resection was planned and assessed using an alhaji wing. I then made the cut using a sagittal saw. This provided additional access to the femoral notch. The ACL and PCL were excised. Retractors were placed on the lateral and medial tibia. I hyperflexed the knee while externally rotating it to sublux the tibia anteriorly. I placed a PCL retractor posteriorly and used this to provide additional anterior subluxation. The remainder of the PCL root was released. An intramedullary reamer was used in the ACL footprint to provide access to the tibial canal. An extramedullary guide was positioned to allow a resection perpendicular to the anatomic and mechanical axes of the tibia, thereby aiming to achieve mechanical alignment of the eventual implant. A +2 resection off the subchondral bone of the medial tibia after removing the cartilage in the medial plateau was planned and the tibial cutting jig was pinned in place. I evaluated the cut depth, varus-valgus alignment and slope of the planned tibial resection and deemed them satisfactory. I cut the tibia with a sagittal saw while using retractors to protect the MCL, patellar tendon, and posterolateral structures.? The knee was repositioned in extension and the Fuzion soft tissue balancing gauge was introduced. This demonstrated that there was equal tension in the medial and lateral compartments of the knee with the knee in full extension and no additional soft tissue releases were necessary. When 50 pounds of force was applied to the Fuzion device, the extension gap opened to 10 mm. I moved the knee into 90 degrees of flexion, and the Fuzion device was recalibrated by removing a 9 mm alice to allow assessment of the flexion gap. The Fuzion was placed perpendicular to the resected surface of the tibia and the resected surface of the distal femur. Fifty pounds of traction was applied to match the tension of the extension gap. This externally rotated the femur to 3 degrees. Pins were placed in the 10 mm holes. The measured resection guide was placed over the pins to allow sizing. Appropriate sizing was determined and a 4-in-1 block was placed. This was double checked using the Fuzion device to ensure that it would open to an equal distance as the extension gap when the same amount of force was applied. The Fuzion block was also used to assess flexion gap symmetry. An alhaji wing was used to ensure there would be no anterior notching. Retractors were placed to protect the soft tissues during resection. Captured cuts were performed with a sagittal saw for the anterior and posterior femur as well as the corresponding chamfers.? Trial components were placed and the construct was assessed. Range of motion was assessed by ensuring the knee could achieve full extension and assessing maximum passive knee flexion by elevating the femur and allowing the heel to passively fall towards the buttock. Gap symmetry was assessed by stressing the medial and lateral compartments in both extension and flexion. Laxity was assessed in both extension and flexion and the polyethylene trial was adjusted with shims as nec essary. Patellar tracking was assessed with knee flexion. Once satisfied with the construct, I moved forward with implant insertion. Lug holes were drilled in the femur and the tibia was prepped ensuring appropriate sizing and rotation relative to the tibial tubercle.?? The bony ends were irrigated and cement was prepared. Portions of the anterior chamfer cut were utilized as cement restrictors in the femur and tibia where intramedullar rods had been utilized. Cement was placed on the entirety of the undersurface of both the tibial and femoral components. Cement was placed onto the dry tibia and pressurized into the cancellous bone. I impacted the tibial component into place. Cement was removed. The tibia was reduced underneath the femur and placed cement onto the dry surface of the resected femur. I placed the femoral component as well as the intended polyethylene trial. Cement was removed from around the femur. I brought the knee into extension and manually pressurized the construct by pushing on the heel while the cement dried. The knee was bathed in a dilute mixture of betadine and peroxide. A mixture of Ropivacaine, Epinephrine, Clonidine and Toradol was infiltrated throughout the soft tissues into structures including the VMO, patellar tendon, quadriceps tendon, MCL and femoral periosteum. A low adductor canal block was also performed using this mixture unless one had been placed preoperatively by anesthesia. The knee was copiously irrigated with pulse lavage. Once cement had been allowed to dry the knee was again trialed. Range of motion was assessed by ensuring the knee could achieve full extension and assessing maximum passive knee flexion by elevating the femur and allowing the heel to passively fall towards the buttock. Gap symmetry was assessed by stressing the medial and lateral compartments in both extension and flexion. Laxity was assessed in both extension and flexion and the polyethylene trial was adjusted with shims as necessary. Patellar tracking was assessed with knee flexion. The tourniquet was let down and the polyethylene trial was removed. I inspected the knee inspected for excess cement and any residual bleeding. Once hemostasis was achieved I inserted the final polyethylene and ensured appropriate engagement of the dovetail locking mechanism.?? The arthrotomy was closed with absorbable interrupted suture ensuring that this extended to the top of the arthrotomy. This was backed up with running barbed suture throughout the arthrotomy. The skin was closed with 2-0 and 3-0 sutures. Surgical glue was applied and a soft dressing was placed.?The sponge, instrument and needle counts were reported as being correct at the end of the case.??No obvious complications occurred. The patient was transferred from the operating table back to a stretcher. The patient emerged from anesthesia without difficulty and was taken to the PACU in a stable condition.? Plan for aftercare: * Weightbearing as tolerated * Mobilization as soon as the patient has recovered from anesthesia. If physical therapists are unavailable at the time the patient is ready to ambulate, then nursing staff should help patient ambulate * Aspirin 81 twice per day for DVT prophylaxis * Multimodal pain regimen with no IV opioids ordered * Anticipate discharge home later today * Follow up at [facility] in 2 weeks * Detailed postoperative instructions available at [email or web address]
[2024-06-03] MEDS: fentaNYL 100 MCG/2 ML INJ IV (13:36)
[2024-06-03] MEDS: OXYCODONE IR 5 MG TABLET PO ×2 (13:37→14:58)
--- NOTE | 2024-06-03 16:32 | SUR.PHASEII ---
Dr Mcclellan to bedside to speak to patient related to questions with dressing and care of the david. Patient satisified that Dr Mcclellan has answered all of her questions and agreeable to proceed with discharge. Patient also made aware that she has had a spinal which can take time for patient to be able to urinate post procedure. Patient states understanding and aware to come back to emergency department if unable to urinate.
--- NOTE | 2024-06-04 11:43 | PT.IIE ---
Current Diagnoses Unilateral primary osteoarthritis, left knee (06/03/24) Surgery Performed Operation Date: 06/03/24 10:45 Actual Procedures p Total Knee Arthroplasty(Left) - Farhan Mcclellan MD Surgical History (Last Updated 06/03/24 @ 17:06 by Vijay Cruz MD) History of arthrodesis (05/12/23) History of arthroscopy of left shoulder (09/29/22) History of arthroscopy of right shoulder History of bunionectomy of left great toe (05/12/23) History of bunionectomy of right great toe (12/01/17) History of total knee arthroplasty (06/03/24) Hx of hand surgery (11/2014) Hx of knee surgery (~1986) Medical History (Last Updated 05/30/24 @ 13:29 by Vijay Cruz MD) Abnormal Pap smear of cervix (~1989) ADHD (attention deficit hyperactivity disorder) (2009) Alopecia Anesthesia complication Carpal tunnel syndrome (~1999) Chickenpox (~1972) Chronic pain syndrome (Unknown) 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) Family history of skin cancer Fibromyalgia (~2010) Generalized headaches (Unknown) Genital warts (~1989) Hallux valgus (acquired), right foot Herpes (~1999) History of COVID-19 (~2022) Hypothyroid Macrocytosis without anemia (05/10/16) Metatarsalgia, right foot Moderate mixed hyperlipidemia not requiring statin therapy Mumps (~1969) Nerve injury Osteoarthritis Pain in right foot Painful menstrual periods (~2009) Scoliosis (~1979) Shoulder impingement Solar lentigo Tobacco abuse Physical Therapy Inpatient Evaluation/Re-Eval M1 PT/OT-IP Prior Functional Status Start: 06/04/24 11:28 Freq: NEEDED Status: Active Protocol: Document 06/03/24 16:00 KJ (Rec: 06/04/24 11:42 KJ [id number]) Medical Review Prior Functional Status Medical History Reviewed Yes Mobility and Gait Indep ambulation without AD Activities of Daily Living and IADL's Indep in ADLs Social History Household Members none Living Arrangements Apartment/Condo Number of Floors (Floors) One Floor Number of Stairs To Enter/Railing? 0 Home Environment Standard Height Toilet Home Equipment Front Wheel Walker,Shower Seat with Backrest Additional Social History Comment Lives in a single floor cottage. Has had multiple surgeries on the left knee M2 PT-IP Current Condition Start: 06/04/24 11:28 Freq: NEEDED Status: Active Protocol: Document 06/03/24 16:00 KJ (Rec: 06/04/24 11:42 KJ [id number]) Physical Therapy Current Condition Current Condition Evaluation Date 06/03/24 Treatment Diagnosis impairedc mobility s/p TKR Onset Date 06/03/24 M3 PT-IP Subjective Start: 06/04/24 11:28 Freq: NEEDED Status: Active Protocol: Document 06/03/24 16:00 KJ (Rec: 06/04/24 11:42 KJ [id number]) Subjective Physical Therapy Visit Type Type Initial Evaluation Visit Start Time 15:13 Visit Stop Time 15:58 Physical Therapy Visit Comments Patient Comments Pain in L knee, increases with movement Patient Goals To go home today Therapy Pain Assessment Pain When Pain Assessed During Mobility Pain Present Pain Present Pain Reported Location left knee Description Aching,Sharp Pain Behaviors Facial Grimacing,Restlessness Pain Management Techniques Distraction,Re-positioning M4 PT-IP Mobility and Gait Start: 06/04/24 11:28 Freq: NEEDED Status: Active Protocol: Document 06/03/24 16:00 KJ (Rec: 06/04/24 11:42 KJ [id number]) PT-Bed Mobility Assessment Rolling Type of Rolling Roll to Right Level of Assist Minimal Assistance Supine to Sit Supine to Sit Minimal Assistance Scooting Scooting to Edge of Bed Independent PT-Transfer Assessment Sit to and From Stand Sit to and from Stand Contact Guard Assistance Equipment Transfer Assistive Device Gait Belt,Front Wheeled Walker Transfers Transfer Destination Chair Transfer Technique Stand Step Pivot Transfer Ability Level of Assist Minimal Assistance Comments Mobility Comments slight loss of balance forward , pt reports numbness in LLE Gait Assessment Assistive Devices Assistive Device Gait Belt,Front Wheeled Walker Gait Deviations General Gait Pattern Decreased Stride Length Factors Limiting Gait Function Factors Limiting Gait Function Pain Comments Gait Comments gait slow and steady Stair Climbing Assessment Comments Stair Climbing Comments Verbally reviewed stairs M5 PT-IP Objective Assessments Start: 06/04/24 11:28 Freq: NEEDED Status: Active Protocol: Document 06/03/24 16:00 KJ (Rec: 06/04/24 11:42 KJ [id number]) Orientation Orientation/Cognition Level of Alertness Alert Orientation Name,Age,Birthday,Month, Situation Language Function Ability No Deficits Noted Safety Awareness Understands Safety Issues Comments Pt's mother is present during session Gross Range of Motion Lower Extremity ROM Assessment Left Impaired Impairments dressings and WILIAM on L knee Strength Upper Extremity Strength Assessment Within Functional Limits Lower Extremity Strength Knee limited Sensation Assessment Sensation Gross Sensation Left LE Impaired Comments Sensation Comments Increasing sensation in LLE throughout session M6 PT-IP Treatment Start: 06/04/24 11:28 Freq: NEEDED Status: Active Protocol: Document 06/03/24 16:00 KJ (Rec: 06/04/24 11:42 KJ [id number]) Physical Therapy Treatment Exercises Exercises Ankle Pumps,Gluteal Sets,Quad Sets,Passive Knee Extension Hang Education Education Provided Weight Bearing Status,Safety Other Treatments Other Treatment Performed Instructed on safety in the home. Encouraged pt to take it easy at home, to be safe and not fall, to wait until first PT appointment to increase activity. M7 PT-IP Assessment and Plan Start: 06/04/24 11:28 Freq: NEEDED Status: Active Protocol: Document 06/03/24 16:00 KJ (Rec: 06/04/24 11:42 KJ [id number]) PT Summary Assessment and Plan Potential Rehabilitation Potential Excellent Status of Condition at Evaluation Evolving Summary Impairments Pain,ROM,Gait Progress Towards Goals Progressing Toward Goals Goals Other Goals Pt going home today. She has an outpatient PT appointment scheduled. Frequency of Treatment Frequency Of Treatment Discharge Weight Bearing Status Weight Bearing Status Weight Bear as Tolerated Recommendations To Nursing Amount of Assist Needed 1 Person Assist Discharge Recommendations PT Discharge Recommendations Home with Assistance Transportation Needs at Discharge Private Vehicle
== END 2024-06-03 16:34 | disposition home or self-care (01) ==
LOC: OR 09:28 → AC 09:29
PROVIDERS: PCP Family Medicine; Referring Provider Orthopaedic Surgery Adult Reconstructive Orthopaedic Surgery; Visit Provider Orthopaedic Surgery Adult Reconstructive Orthopaedic Surgery
PROC: 0SRD0JZ Replacement of Left Knee Joint with Synthetic Substitute, Open Approach (ICD-10-PCS; CPT 27447; principal; 2024-06-03 10:45)
DX: M17.12 Unilateral primary osteoarthritis, left knee (principal); E03.9 Hypothyroidism, unspecified; Z87.891 Personal history of nicotine dependence
CPT/HCPCS: 27447; 73560; 97110; 97116; C1776; C1713; J0690; J2250; J2405; J2704; J3010

== ENCOUNTER → 2024-09-11 11:54 | Outpatient (CLI) | payer OTHER, SELFPAY ==
--- NOTE | 2024-09-11 11:55 | DI.RAD.S_ITS ---
PROCEDURE: XR KNEE LT 3V INDICATIONS: Left knee pain TECHNIQUE: 3 views of the knee were acquired. COMPARISON: [facility] [place], [place], XR KNEE 4+ VIEWS LEFT, 07/17/2024, 14:43. [facility], CR, XR KNEE LT 1TO2V, 06/03/2024, 13:14. FINDINGS: Bones: No fractures or dislocations. Stable appearance of left knee arthroplasty. The hardware appears intact without surrounding fracture or lucency. No suspicious bony lesions. Soft tissues: Small joint effusion. No suspicious soft tissue calcifications. IMPRESSION: Stable appearance of left knee arthroplasty without evidence of interval complication. No acute osseous abnormalities. Dictated by: Chris Dalton M.D. on 09/11/2024 at 14:56 Approved by: Chris Dalton M.D. on 09/11/2024 at 14:58
== END ==
PROVIDERS: PCP Family Medicine; Referring Provider Orthopaedic Surgery Adult Reconstructive Orthopaedic Surgery; Visit Provider Orthopaedic Surgery Adult Reconstructive Orthopaedic Surgery
DX: M51.16 Intervertebral disc disorders with radiculopathy, lumbar region (principal); M25.562 Pain in left knee; M79.7 Fibromyalgia; M25.462 Effusion, left knee; Z96.652 Presence of left artificial knee joint; G89.29 Other chronic pain
CPT/HCPCS: 73562; 99214

== ENCOUNTER 2025-05-06 13:28 | Outpatient (CLI) | payer OTHER, SELFPAY ==
[2025-05-06] VITALS (8 sets, daily range): BP systolic 119–154; BP diastolic 70–88; PULSE 65–89; RESP 12–18; O2SAT 95–100
[2025-05-06] MEDS: MIDAZOLAM 2 MG/2 ML VIAL IV (14:58)
[2025-05-06] MEDS: BETAMETHASONE 30 MG/5 ML MDV 12 MG INJ (15:06)
[2025-05-06] MEDS: LIDOCAINE 1% 20 ML 5 ML INJ (15:06)
[2025-05-06] MEDS: BETAMETHASONE 30 MG/5 ML MDV 6 MG INJ (15:07)
--- NOTE | 2025-05-06 15:22 | PM.PROC.IR.1 ---
Date/Time/Diagnoses Date of procedure: 05/06/25 Time of procedure: 15:22 Pre-procedure diagnosis: 1. FORAMINAL STENOSIS WITH LE SYMPTOMS Procedure Notes Procedure: 1. FLUOROSCOPICALLY GUIDED CONTRAST CONTROLLED TRANSFORAMINAL EPIDURAL STEROID INJECTION - BILATERAL L4/5 TFESI Indications: Romelia is referred by Dr. Cruz for treatment of Foraminal Stenosis with bilateral LE Symptoms Physician: David Clark Total Fluoroscopy time (seconds): 12 Total sedation minutes: 15 Complications: none Procedure in detail & Post-procedure care: FINDINGS Foraminal Nerve Root Compression secondary to disc disease and facet hypertrophy DESCRIPTION OF PROCEDURE Following review of allergy and review of potential side effects and complications, including, but not necessarily limited to, infection, allergic reaction, local tissue breakdown, stroke, temporary or permanent nerve injury, paralysis, and possible , the patient indicated that the patient understood and agreed to proceed. An informed consent document was signed by the patient, witnessed by a nurse, and placed in the patient's chart. Additionally, other treatment options including medications, modalities, and physical therapy were reviewed with the patient. After review of previous anaesthesic history and IV conscious sedation the patient was deemed safe to proceed with today?s procedure with IV conscious sedation as ASA class II designation. Safety time-out was performed to confirm patient ID, procedure to be performed and site of procedure. IV sedation was accomplished with a combination of 4mg of Versed was administered by the RN after DO order, titrated to patient comfort during the course of the procedure while the patient remained responsive to all verbal commands In the prone position following sterile prep and drape of the lumbar region, the right L4/5 posterior neuroforamen was identified fluoroscopically. The skin was anesthetized via a 25-gauge 1.5-inch needle with 1% lidocaine solution. At this point, a 25-gauge 3.5-inch spinal needle was atraumatically introduced and advanced under fluoroscopic guidance through the posterior right L4/5 neuroforamen to approximately the anterior aspect of the canal. Depth was confirmed on lateral view. Following negative aspiration, injection of approximately 1.5cc of Isovue 200 under live fluoroscopy in the AP view confirmed excellent flow along the nerve root, into the epidural space without vascular or intrathecal uptake observed Radiological data, including multiple fluoroscopic views of the lumbosacral spine, reveal a spinal needle at the right L4/5 posterior neuroforamen. Subsequent views show flow of contrast material flowing superiorly and inferiorly along the nerve root confirming epidural flow. Subsequently, a test dose of 1.5cc of 1% lidocaine solution was administered and patient was observed for two minutes for signs or symptoms of complications, including abdominal pain, shortness of breath, bilateral upper or lower extremity weakness, nausea and vomiting, prior to steroid injection. At this point, a total of 2cc or 10mg of dexamethasone and 6mg betamethasone was injected without incident. Attention was then refocused to the left L4/5 level where the identical procedure was replicated. The procedure tolerated the procedure well without signs or symptoms of complications prior to transfer to the recovery area continued monitoring without incident. The patient was then transferred to the recovery area where they were observed for an appropriate time after the injection. The patient reported a VAS score of 7 prior to the procedure and a post-procedure VAS of 0. POST OP INSTRUCTIONS The patient was provided a Pain Log to continue to record their response to the target-specific procedure prior to follow-up visit with their referring physician. Additionally, specific post-injection care instructions and a contact number to our office were provided if concerns arise regarding possible complications associated with the procedure are suspected.
== END 2025-05-06 15:43 | disposition home or self-care (01) ==
LOC: RAD 13:29
PROVIDERS: PCP Family Medicine; Referring Provider Physical Medicine & Rehabilitation; Visit Provider Physical Medicine & Rehabilitation
DX: M48.061 Spinal stenosis, lumbar region without neurogenic claudication (principal); M51.16 Intervertebral disc disorders with radiculopathy, lumbar region; M47.26 Other spondylosis with radiculopathy, lumbar region
CPT/HCPCS: 64483; 99152; J0702; J1100; J2250